=== PATIENT | female | born 1990 | race Caucasian/White ===

== ENCOUNTER 2016-11-22 17:35 | Inpatient (IN) | payer BC ==
[2016-11-22 18:23] VITALS: BMI 27.6
[2016-11-22] MEDS ORDERED: BUTORPHANOL TARTRATE 1 MG/ML VIAL IVPB ONE (18:23)
[2016-11-22] MEDS ORDERED: PROMETHAZINE HCL 25 MG/1 ML VIAL IVPUSH ONE (18:23)
[2016-11-22] MEDS ORDERED: DEXTROSE 5%-LACTATED RINGERS 1,000 ML IV SCH ×2 (18:30)
[2016-11-22] MEDS ORDERED: TUBERCULIN PPD 5 TU/0.1ML SYRINGE (IN PATIENT USE ONLY) ID ONE (18:30)
--- NOTE | 2016-11-22 18:30 | HP ---
Past Medical History - Admission History of Present Illness: 25 y/o with SIUP at 40.3 weeks gestation with complaints of painful contractions since early this afternoon. Patient seen in the office and was 3cm dilated. Membranes were stripped at that time. complicated by + Trichomonas in September - pt treated and was not sexually active since treatment. +GBS and PCN allergic - will need vancomycin in labor. No other issues. 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 No: Renal Calculi Reproductive: No: Ectopic , PID ...: 2 ...Para: 0 ...Term: 0 ...: 0 ...Spon : 0 ...Induced : 1 ...Multiple Gestation: 0 ...LMP: 02/13/16 ... Weeks Gestation by Dates: 40.1 ...EDC by Dates: 11/21/16 ...EDC by Sono: 11/19/16 Heme/Onc: Yes: Anemia (mild - last Hgb 10.9 at 36 weeks) Infectious Disease: Yes: STD's (h/o Trichomonas this - treated). No: HIV Psych: No: Anxiety, Depression - Past Surgical History Past Surgical History: Yes: None Hx Myomectomy: No Hx Transabdominal Cerclage: No - Smoking History Smoking history: Never smoked - Alcohol/Substance Use Hx Alcohol Use: No - Social History ADL: Independent History of Recent Travel: No Home Medications - Allergies Allergies/Adverse Reactions: Allergies Allergy/AdvReac Type Severity Reaction Status Date / Time Penicillins Allergy Severe Difficulty Verified 11/22/16 18:10 Breathing - Home Medications Home Medications: Ambulatory Orders Vit/Iron Fumarate/FA [ Tablet] 1 each PO DAILY 11/11/16 Review of Systems - Review of Systems Constitutional: reports: No Symptoms Eyes: reports: No Symptoms HENT: reports: No Symptoms Neck: reports: No Symptoms Cardiovascular: reports: No Symptoms Respiratory: reports: No Symptoms Gastrointestinal: reports: No Symptoms Genitourinary: reports: No Symptoms Breasts: reports: No Symptoms Reported Musculoskeletal: reports: No Symptoms Integumentary: reports: No Symptoms Neurological: reports: No Symptoms Endocrine: reports: No Symptoms Hematology/Lymphatic: reports: No Symptoms Psychiatric: reports: No Symptoms Physical Exam - Maternity Vital Signs: Vital Signs Temperature 98.4 F 11/22/16 18:00 Pulse Rate 77 11/22/16 18:00 Respiratory Rate 18 11/22/16 18:00 Blood Pressure 114/82 11/22/16 18:00 O2 Sat by Pulse Oximetry (%) Constitutional: Yes: Well Nourished, No Distress, Calm HENT: Yes: Atraumatic, Normocephalic Neck: Yes: Supple, Trachea Midline Cardiovascular: Yes: Regular Rate and Rhythm Lungs: Clear to auscultation - Abdominal Exam/OB Fundal Height: 40 Number of Fetuses: Single Presentation: Vertex Contractions: Yes Regularity: Irregular Intensity: Mild/Mod Monitor Mode: External Heart Rate (range): 130 Category: I Accelerations: Uniform Decelerations: None - Vaginal Exam/OB Vaginal Bleediing: No Dilatation (cm): 3 Effacement (%): 80 Amniotic Membrane Status: Intact Presentation: Vertex/Position Station: -2 - Physical Exam Psychiatric: Yes: Alert, Oriented Hemorrhage Risk Assessment - Risk Factors Medium Risk Factors: Yes: None High Risk Factors: Yes: None Risk Score: 1 Risk Level: Medium Risk Problem List - Problems (1) Term Code(s): Z34.80 - ENCOUNTER FOR SUPRVSN OF NORMAL , UNSP TRIMESTER (2) Active labor at term Code(s): DEV8727 - Assessment/Plan 25 y/o with SIUP at 40.3 weeks gestation in labor - FHTS cat 1 - admit to L&D, start IV fluids, augment labor with pitocin - GBS positive - PCN allergic - no sensetivities done on cultures - will give vancomycin for GBS ppx - routine care
[2016-11-22] MEDS ORDERED: OXYTOCIN 15 UNITS/ LR 250 ML 250 ML IVPB SCH (19:00)
[2016-11-22] MEDS ORDERED: VANCOMYCIN 1 GRAM (PRE-DOCKED) 250 ML IVPB ONE (19:00)
[2016-11-22 19:23] LABS: BASOPHIL 0.5 % (0-2.0); EOSINOPHIL 0.3 % (0-4.5); MCH 27.6 pg (25.7-33.7); MCHC 32.7 g/dl (32.0-36.0); MEAN CELL VOLUME 84.2 fl (80-96); MEAN PLT VOLUME 8.7 fl (7.5-11.1); NEUTROPHILS 81.9 % (42.8-82.8); PLATELET COUNT 311 K/MM3 (134-434); RDW 13.2 % (11.6-15.6); WHITE BLOOD COUNT 11.2 K/mm3 (4.0-10.0)
[2016-11-22 19:39] LABS: ACTIVATED PTT 29.5 SECONDS (26.9-34.4)
[2016-11-22 20:01] LABS: CALCIUM 9.1 mg/dL (8.5-10.1); CREATININE 0.6 mg/dL (0.55-1.02)
[2016-11-22] MEDS ORDERED: diphenhydrAMINE HCL 25 MG CAPSULE (FP) PO ONE (21:09)
--- NOTE | 2016-11-22 22:10 | PN ---
Ante-Partal Exam - Subjective Subjective: Pt requesting something for pain. Vital Signs: Vital Signs Temperature 98.8 F 11/22/16 22:00 Pulse Rate 93 H 11/22/16 22:00 Respiratory Rate 20 11/22/16 22:00 Blood Pressure 138/85 11/22/16 22:00 O2 Sat by Pulse Oximetry (%) Bleeding: No Headache: No Visual changes: No Right upper quadrant pain: No Pain (scale 1-10): 7 - Contractions Contractions: Yes Regularity: Regular Intensity: Mild/Mod Monitor Mode: External - Exam during Labor Heart Rate: 130 Variability: Moderate Category: I Monitor Accelerations: Present Monitor Decelerations: None Exam: Vaginal Dilatation (cm): 3.5 Effacement (%): 90 Amniotic Membrane Status: Intact Presentation: Vertex Station: -1 - Assessment/Plan Assessment/Plan: 25 y/o with SIUP at 40.3 weeks, labor, augmented - FHTS cat 1 - labor, augmented with pitocin, continue active management - GBS positive, s/p one dose vancomycin - for stadol/phenergan at this time - epidural prn
--- NOTE | 2016-11-23 01:07 | PN ---
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: No Gender: Male Position: Left, OA (compound with posterior hand) - 1 Minute Total Score: 9 5 Minutes Total Score: 9 - Feeding Plan Initial Plan: Elected not to breastfeed exclusively throughout hospitalization Remarks - Remarks Remarks: Uncomplicated delivery of baby boy from [facility] position anterior shoulder (right) delivered with ease along with remainder of infant cord clamped and cut cord blood collected 1st degree laceration repaired with 2-0 Chromic suture after injection of 10cc 1 % lidocaine placenta delivered spontaneously and in tact mom sable baby to well baby nursery EBL 300 sponge and needle count correct after delivery
[2016-11-23] MEDS ORDERED: WITCH HAZEL 50% (TUCKS) 40 PAD/JAR PAD TP PRN (01:08)
[2016-11-23] MEDS ORDERED: BISACODYL 10 MG SUPP.RECT RC PRN (01:08)
[2016-11-23] MEDS ORDERED: BENZOCAINE 20% 57 GM BOTTLE TP PRN (01:08)
[2016-11-23] MEDS ORDERED: IBUPROFEN 600 MG TABLET (FP) PO PRN (01:08)
[2016-11-23] MEDS ORDERED: METHYLERGONOVINE MALEATE 0.2 MG/1 ML AMP IM PRN (01:08)
[2016-11-23] MEDS ORDERED: BENZOCAINE 28 GM HEMORRHOIDAL OINTMENT TP PRN (01:08)
[2016-11-23] MEDS ORDERED: ACETAMINOPHEN 325 MG TABLET (FP) PO PRN (01:08)
[2016-11-23] MEDS ORDERED: D5W-LR W/ 20 UNITS OXYTOCIN 1,000 ML IV SCH (01:15)
[2016-11-23] MEDS ORDERED: VANCOMYCIN 1 GRAM (PRE-DOCKED) 250 ML IVPB SCH (07:00)
[2016-11-23] MEDS: PRENATAL VITAMINS W/ FOLIC ACID TABLET (FP) PO SCH (09:52)
[2016-11-24 07:28] LABS: BASOPHIL 0.6 % (0-2.0); EOSINOPHIL 0.3 % (0-4.5); MCH 27.9 pg (25.7-33.7); MCHC 32.9 g/dl (32.0-36.0); MEAN CELL VOLUME 84.8 fl (80-96); MEAN PLT VOLUME 8.3 fl (7.5-11.1); NEUTROPHILS 79.5 % (42.8-82.8); PLATELET COUNT 225 K/MM3 (134-434); RDW 13.2 % (11.6-15.6); WHITE BLOOD COUNT 11.4 K/mm3 (4.0-10.0)
[2016-11-24] MEDS: PRENATAL VITAMINS W/ FOLIC ACID TABLET (FP) PO SCH (09:12)
--- NOTE | 2016-11-24 16:44 | PN ---
Post Progress Note - Subjective Subjective: Late entry for 10:00 am Pt seen/evaluated and doing well. Pain controlled. Tolerating diet. No N/V/F/ C/OJEDA. VB minimal. No other complaints. Type of Delivery: Vital Signs: Vital Signs Temperature 98.4 F 11/24/16 08:12 Pulse Rate 104 H 11/24/16 08:12 Respiratory Rate 20 11/24/16 08:12 Blood Pressure 101/62 11/24/16 08:12 O2 Sat by Pulse Oximetry (%) 98 11/23/16 01:30 Uterus: Yes: Fundus Firm, Fundus below umbilicus Abdomen/GI: Yes: Abdomen soft Lochia: Yes: Rubra Lochia, amount: Small Extremities: Yes: Calves non-tender. No: Edema Activity: Ambulating - Labs Labs: CBC WBC 11.4 K/mm3 (4.0-10.0) H 11/24/16 06:00 RBC 3.58 M/mm3 (3.60-5.2) L D 11/24/16 06:00 Hgb 10.0 GM/dL (10.7-15.3) L D 11/24/16 06:00 Hct 30.3 % (32.4-45.2) L D 11/24/16 06:00 MCV 84.8 fl (80-96) 11/24/16 06:00 MCHC 32.9 g/dl (32.0-36.0) 11/24/16 06:00 RDW 13.2 % (11.6-15.6) 11/24/16 06:00 Plt Count 225 K/MM3 (134-434) D 11/24/16 06:00 MPV 8.3 fl (7.5-11.1) 11/24/16 06:00 Neutrophils % 79.5 % (42.8-82.8) 11/24/16 06:00 Lymphocytes % 10.3 % (8-40) 11/24/16 06:00 Monocytes % 9.3 % (3.8-10.2) 11/24/16 06:00 Eosinophils % 0.3 % (0-4.5) 11/24/16 06:00 Basophils % 0.6 % (0-2.0) 11/24/16 06:00 Problem List - Problems (1) Term Code(s): Z34.80 - ENCOUNTER FOR SUPRVSN OF NORMAL , UNSP TRIMESTER (2) Active labor at term Code(s): [id number] - Assessment/Plan PPD#1 s/p normal AFVSS Hgb 10.0- pt stable PO pain meds, regular diet routine care
[2016-11-24] MEDS ORDERED: SENNOSIDES/DOCUSATE COMBO (SENNA PLUS) TABLET (UD) PO PRN (22:00)
[2016-11-24 22:13] VITALS: PULSE 85
[2016-11-25 09:12] VITALS: BP 100/65; TEMP 97.9
[2016-11-25] MEDS: PRENATAL VITAMINS W/ FOLIC ACID TABLET (FP) PO SCH (09:43)
--- NOTE | 2016-11-25 10:03 | DS ---
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 Vital Signs: Vital Signs Temperature 97.9 F 11/25/16 09:12 Pulse Rate 85 11/25/16 09:12 Respiratory Rate 20 11/25/16 09:12 Blood Pressure 100/65 11/25/16 09:12 O2 Sat by Pulse Oximetry (%) 98 11/23/16 01:30 Constitutional: Yes: Well Nourished, No Distress, Calm Eyes: Yes: Conjunctiva Clear, EOM Intact HENT: Yes: Atraumatic, Normocephalic Neck: Yes: Supple, Trachea Midline Cardiovascular: Yes: Regular Rate and Rhythm, Other Respiratory: Yes: Regular, CTA Bilaterally Gastrointestinal: Yes: Normal Bowel Sounds, Soft ....Post : Yes: Uterus firm, Uterus non-tender Neurological: Yes: Alert, Oriented Psychiatric: Yes: Alert, Oriented Labs: CBC, BMP 11/24/16 06:00 11/22/16 19:00 Delivery - Delivery Vaginal Delivery: No Problems, Spontaneous Type of Anesthesia: Local Episiotomy/Laceration: 1st degree EBL (cc): 300 Delivery, Single - Stages of Labor Date 1st Stage Initiatied: 11/22/16 Time 1st Stage Initiated: 16:00 Date 2nd Stage Initiated: 11/23/16 Time 2nd Stage Initiated: 00:20 Date of Delivery: 11/23/16 Time of Delivery: 12:43 Time Placenta Delivered: 12:55 Placenta: Yes: Spontaneous - Condition of Skin Installer/Shadow Graph Weight Operator Present: No Gender: Male Weight: 6 lb 6 oz Position: Left, OA (compound with posterior hand) Total Hours ROM (Hrs/Mins): 0/23 MINUTES - 1 Minute Total Score: 9 5 Minutes Total Score: 9 - Feeding Plan Initial Plan: Elected not to breastfeed exclusively throughout hospitalization Discharge Summary Reason For Visit: LABOR Current Active Problems Active labor at term (Acute) Term (Acute) Procedures: Principal: normal Hospital Course: unremarkable post recovery. pt discharged home in stable condition on post day 2. Condition: Good - Instructions Diet, Activity, Other Instructions: Physical activity Resume your normal everyday activity as tolerated no heavy lifting or exercise until seen by your surgeon. You may walk unlimited laurence of and climb stairs. You may resume driving the car when you feel safe and comfortable behind the wheel. No sexual activity as instructed. Wound care If you have a bandage, leave it on, and keep dry for 48-72 hours. After that time discard the outer bandage. If they are tapes on the skin under the out of bandage leave them in place. They will peel off in the next 7 to 10 days. Do Not Peel them off. You may shower the day after surgery. If there are tapes present on the skin, you may shower over them. Diet There are no dietary restrictions. Eat healthy, high-fiber foods. Drink 6 to 8 glasses of liquid each day. This will assist in keeping your bowels are regular. Pain management You may take Tylenol or acetaminophen or Ibuprofen (for example, Motrin, Advil etc.) from my pain prescription medication is ordered should be taken as prescribed for moderate to severe pain. Call MD for any of the following: Severe pain not relieved by medication Fever of 101 or higher Excessive bleeding or drainage on dressing Inability to urinate Disposition: HOME - Home Medications Comprehensive Discharge Medication List: Ambulatory Orders Vit/Iron Fumarate/FA [ Tablet] 1 each PO DAILY 11/11/16
== END 2016-11-25 12:50 | disposition home or self-care (01) | DRG 775 ==
LOC: JLDR 17:35 → J3W 11-23 02:55
PROVIDERS: ADMIT Obstetrics & Gynecology; ATTEND Obstetrics & Gynecology
PROC: 0HQ9XZZ Repair Perineum Skin, External Approach (ICD-10-PCS; principal; 2016-11-23)
PROC: 10E0XZZ Delivery of Products of Conception, External Approach (ICD-10-PCS; 2016-11-23)
DX: O48.0 Post-term pregnancy (principal); Z3A.40 40 weeks gestation of pregnancy; O99.824 Streptococcus B carrier state complicating childbirth; O70.0 First degree perineal laceration during delivery; Z37.0 Single live birth
CPT/HCPCS: 36415; 59409; 80048; 85025; 85610; 85730; 86593; 86850; 86900; 86901